=== PATIENT | female | born 1995 | race Two or more races ===

== ENCOUNTER 2019-04-28 13:48 | Emergency (ER) | payer OTHER ==
[~2019-04-28] VITALS: Ht 154.9 cm; Wt 55.3 kg
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
--- NOTE | 2019-04-28 14:06 | NUR ---
CALLED BROTHER TO INFORM PT IS IN ER BROTHER: YESI [phone]
--- NOTE | 2019-04-28 14:14 | NUR ---
DR DENNY AT BEDSIDE
--- NOTE | 2019-04-28 14:17 | NUR ---
DR DENNY AT BEDSIDE
[2019-04-28] MEDS ORDERED: IBUPROFEN 600 MG TABLET PO ONE ×2 (14:30→14:48)
[2019-04-28 16:10] VITALS: BP 130/78
--- NOTE | 2019-04-28 16:10 | NUR ---
Patient discharged to home in stable condition. Written and verbal after care instructions given. Patient verbalizes understanding of instruction.
== END 2019-04-28 16:12 | disposition home or self-care (01) ==
LOC: ER 13:51
DX: S16.1XXA Strain of muscle, fascia and tendon at neck level, initial encounter (principal); S39.012A Strain of muscle, fascia and tendon of lower back, initial encounter; K58.9 Irritable bowel syndrome, unspecified; V49.49XA Driver injured in collision with other motor vehicles in traffic accident, initial encounter; Y93.89 Activity, other specified; Y92.413 State road as the place of occurrence of the external cause; Y99.8 Other external cause status
CPT/HCPCS: 72125-TC; 72131-TC